=== PATIENT | male | born 1965 | race African-American/Black ===

== ENCOUNTER 2018-05-14 12:29 | Inpatient (IN) | payer OTHER ==
[2018-05-14 13:55] VITALS: BMI 24.3
--- NOTE | 2018-05-14 15:43 | HP ---
CIWA Score - Admission Criteria [facility] Guidelines: Admission for Medically Managed Detox: Requires at least one of the followin. CIWA greater than 12 2. Seizures within the past 24 hours 3. Delirium tremens within the past 24 hours 4. Hallucinations within the past 24 hours 5. Acute intervention needed for co occurring medical disorder 6. Acute intervention needed for co occurring psychiatric disorder 7. Severe withdrawal that cannot be handled at a lower level of care (continued vomiting, continued diarrhea, abnormal vital signs) requiring intravenous medication and/or fluids 8. Admission ROS S - HPI Chief Complaint: i am here for rehab from alcohol,cocaine,marijuana Allergies/Adverse Reactions: Allergies Allergy/AdvReac Type Severity Reaction Status Date / Time No Known Allergies Allergy Verified 05/14/18 13:50 History of Present Illness: this 52 years old male with alcohol,cocaine and marijuana dependence,seeking rehab,completed [facility] today, history of hypertension on medication nicotine dependence 30 cigarette ,will give nicotine patch and gum depression for rehab no significant period of sobriety - Ebola screening Have you traveled outside of the country in the last 21 days: No Have you had contact with anyone from an Ebola affected area: No - Review of Systems Constitutional: No Symptoms Reported EENT: reports: No Symptoms Reported Respiratory: reports: No Symptoms reported Cardiac: reports: No Symptoms Reported GI: reports: No Symptoms Reported : reports: No Symptoms Reported Musculoskeletal: reports: No Symptoms Reported, Other (fx of left ankle in 1990) Integumentary: reports: No Symptoms Reported Neuro: reports: No Symptoms reported Endocrine: reports: No Symptoms Reported Hematology: reports: No Symptoms Reported Psychiatric: reports: No Sypmtoms Reported, Judgement Intact, Mood/Affect Appropiate, Orientated x3 Patient History - Patient Medical History Hx Anemia: No Hx Asthma: Yes (on albutrol inhaler) Hx Chronic Obstructive Pulmonary Disease (COPD): No Hx Cancer: No Hx Cardiac Disorders: No Hx Congestive Heart Failure: No Hx Hypertension: Yes (on lisinopril 10 mgs po daily) Hx Hypercholesterolemia: No Hx Pacemaker: No HX Cerebrovascular Accident: No Hx Seizures: No Hx Dementia: No Hx Diabetes: No Hx Gastrointestinal Disorders: No Hx Liver Disease: No Hx Genitourinary Disorders: No Hx Sexually Transmitted Disorders: No Hx Renal Disease (ESRD): No Hx Thyroid Disease: No Hx Human Immunodeficiency Virus (HIV): No (hiv 2017 negative) Hx Hepatitis C: No Hx Depression: Yes (no medication) Hx Suicide Attempt: No Hx Bipolar Disorder: No Hx Schizophrenia: No Other Medical History: no suicidal,no homicidal - Patient Surgical History Hx Orthopedic Surgery: Yes (left ankle in 1990 ) - PPD History Previous Implant?: Yes Documented Results: Negative w/proof Implanted On Prior [facility] Admission?: No PPD to be Administered?: No - Smoking Cessation Smoking history: Current every day smoker Have you smoked in the past 12 months: Yes Aproximately how many cigarettes per day: 30 Cigars Per Day: 0 Hx Chewing Tobacco Use: No Initiated information on smoking cessation: Yes 'Breaking Loose' booklet given: 05/14/18 - Substance & Tx. History Hx Alcohol Use: Yes Hx Substance Use: Yes Substance Use Type: Alcohol, Cocaine, Marijuana Hx Substance Use Treatment: Yes ([facility] 05/11/18 to 05/14/18) - Substances abused Alcohol Substance route: Oral Frequency: Daily Amount used: 4 PINTS VODKA Age of first use: 10 Date of last use: 05/14/18 Marijuana/Hashish Substance route: Smoking Frequency: Daily Amount used: 3 BAGS Age of first use: 10 Date of last use: 05/14/18 Cocaine Substance route: Smoking Frequency: Daily Amount used: $50 Age of first use: 10 Date of last use: 05/14/18 Family Disease History - Family Disease History Family History: Denies Family Disease History: Other: Father (alcohol,), Mother (alcohol, ) Admission Physical Exam S - Vital Signs Vital Signs: Vital Signs - 24 hr 05/14/18 05/14/18 13:47 15:25 Temperature 97.0 F L 97.0 F L Pulse Rate 90 90 Respiratory 18 18 Rate Blood Pressure 143/81 143/81 - Physical General Appearance: Yes: Within Normal Limits HEENTM: Yes: Normal ENT Inspection, Normocephalic, VALENT[place], Pharynx Normal Respiratory: Yes: Lungs Clear, Normal Breath Sounds, No Respiratory Distress Neck: Yes: Within Normal Limits, Supple, Trachea in good position Breast: Yes: Within Normal Limits Cardiology: Yes: Within Normal Limits, Regular Rhythm, Regular Rate, S1, S2 Abdominal: Yes: Within Normal Limits, Normal Bowel Sounds, Non Tender, Flat, Soft Genitourinary: Yes: Within Normal Limits Back: Yes: Within Normal Limits Musculoskeletal: Yes: Within Normal Limits Extremities: Yes: Within Normal Limits, Normal Capillary Refill, Normal Inspection, Other (scar eft ankle) Neurological: Yes: tank cooper II-XII NML intact, Fully Oriented, Alert, Motor Strength 5/5 Integumentary: Yes: Dry Lymphatic: Yes: Within Normal Limits - Diagnostic (1) Alcohol dependence Current Visit: Yes Status: Acute (2) Cocaine dependence Current Visit: Yes Status: Acute (3) Cannabis dependence Current Visit: Yes Status: Acute (4) Ankle fracture, left Current Visit: Yes Status: Acute (5) Nicotine dependence Current Visit: Yes Status: Acute (6) Essential hypertension Current Visit: Yes Status: Acute (7) Asthma Current Visit: Yes Status: Acute Cleared for Admission [facility] - Detox or Rehab Claeared for Rehab Admission: Yes Breathalyzer - Breathalyzer Breathalyzer: 0 Urine Drug Screen - Test Device Lot number: [id number] Expiration date: 01/09/20 - Control Is test valid?: Yes - Results Drug screen NEGATIVE: No Urine drug screen results: THC-Marijuana, ERIC-Cocaine, BZO-Benzodiazepines Inpatient Rehab Admission - Rehab Decision to Admit Inpatient rehab admission?: Yes - Initial Determination Are CD services needed?: Yes Free of communicable disease: Yes Not in need of hospitalization: Yes - Rehab Admission Criteria Previous failed treatment: Yes Poor recovery environment: Yes Comorbidities: Yes Lacks judgement: No Patient is meeting Inpatient Rehab admission criteria:: Yes
[2018-05-14] MEDS ORDERED: hydrOXYzine PAMOATE 50 MG CAPSULE (FP) PO PRN (15:53)
[2018-05-14] MEDS ORDERED: MAGNESIUM CITRATE 300 ML BOTTLE PO PRN (15:53)
[2018-05-14] MEDS ORDERED: LOPERAMIDE HCL 2 MG CAPSULE PO PRN (15:53)
[2018-05-14] MEDS ORDERED: MAGNESIUM HYDROX 2400MG/30ML ORAL SUSPENSION 30 ML CUP PO PRN (15:53)
[2018-05-14] MEDS ORDERED: MAG HYDROX/AL HYDROX/SIMETH 30 ML UNIT-DOSE CUP PO PRN (15:53)
[2018-05-14] MEDS ORDERED: MENTHOL/PHENOL 1 EACH UD MM PRN (15:53)
[2018-05-14] MEDS: ACETAMINOPHEN 325 MG TABLET (FP) PO PRN (17:25)
[2018-05-14] MEDS: IBUPROFEN 400 MG TABLET (FP) PO PRN (17:25)
[2018-05-14] MEDS: NICOTINE 21 MG/24 HOURS TOPICAL PATCH TD SCH (17:29)
[2018-05-14] MEDS: MELATONIN 5 MG TABLETS PO PRN (22:11)
[2018-05-14] MEDS: THIAMINE HCL 100 MG TABLET (FP) PO SCH (22:11)
[2018-05-14 23:45] LABS: EPI CELLS 0.7 /HPF (0-5); URINE APPEARANCE CLEAR; URINE BACTERIA 0.3 /hpf (NEGATIVE); URINE BILIRUBIN NEGATIVE (NEGATIVE); URINE CASTS 5 /hpf (0-8); URINE COLOR DK YELLOW; URINE GLUCOSE (UA) NEGATIVE (NEGATIVE); URINE KETONE TRACE (NEGATIVE); URINE LEUK ESTERASE NEGATIVE (NEGATIVE); URINE NITRITE NEGATIVE (NEGATIVE); URINE PROTEIN 1+ (NEGATIVE); URINE RBC 4 /hpf (0-4); URINE UROBILINOGEN 0.2 mg/dL (0.2-1.0); URINE WBC 1 /hpf (0-5)
[2018-05-15] MEDS: P-EPHED 60MG/TRIPROLIDI 2.5MG TABLET PO PRN (06:47)
[2018-05-15] MEDS: guaiFENesin 200 MG/10 ML 10 ML UNIT-DOSE CUPS PO PRN ×2 (06:47→15:10)
[2018-05-15] MEDS: PRENATAL VITAMINS W/ FOLIC ACID TABLET (FP) PO SCH (10:02)
[2018-05-15] MEDS: LISINOPRIL 10 MG TABLET (FP) PO SCH (10:02)
[2018-05-15] MEDS: NICOTINE 21 MG/24 HOURS TOPICAL PATCH TD SCH (10:03)
[2018-05-15] MEDS: NICOTINE POLACRILEX 2 MG GUM BC PRN (10:03)
[2018-05-15 10:12] LABS: ALBUMIN 3.2 g/dl (3.4-5.0); ALK PHOS 88 U/L (45-117); ANION GAP 3 MMOL/L (8-16); BILIRUBIN,TOTAL 0.2 mg/dL (0.2-1); BLOOD UREA NITROGEN 22 mg/dL (7-18); CALCIUM 8.7 mg/dL (8.5-10.1); CHLORIDE 106 mmol/L (98-107); CO2 30 mmol/L (21-32); CREATININE 1.3 mg/dL (0.55-1.3); GLUCOSE,RANDOM 91 mg/dL (74-106); POTASSIUM 4.9 mmol/L (3.5-5.1); SGOT/AST 18 U/L (15-37); SGPT/ALT 27 U/L (13-61); SODIUM 140 mmol/L (136-145); TOT PROT 6.7 g/dl (6.4-8.2)
[2018-05-15 10:14] LABS: HEMATOCRIT 47.6 % (35.4-49); HEMOGLOBIN 15.6 GM/dL (11.7-16.9); MCH 32.3 pg (25.7-33.7); MCHC 32.7 g/dl (32.0-35.9); MEAN PLT VOLUME 8.7 fl (7.5-11.1); PLATELET COUNT 222 K/MM3 (134-434); RBC 4.81 M/mm3 (4.00-5.60); RDW 15.1 % (11.9-15.9); WHITE BLOOD COUNT 2.7 K/mm3 (4.0-10.0)
--- NOTE | 2018-05-15 11:37 | EKG ---
Test Reason : Blood Pressure : / mmHG Vent. Rate : 091 BPM Atrial Rate : 091 BPM P-R Int : 138 ms QRS Dur : 092 ms QT Int : 332 ms P-R-T Axes : 067 064 046 degrees QTc Int : 408 ms NORMAL SINUS RHYTHM CANNOT RULE OUT ANTERIOR INFARCT , AGE UNDETERMINED ABNORMAL ECG NO PREVIOUS ECGS AVAILABLE Confirmed by SLIME VASQUEZ MD ([id number]) on 05/15/2018 11:37:12 AM Referred By: Confirmed By:SLIME VASQUEZ MD
[2018-05-15] MEDS: IBUPROFEN 400 MG TABLET (FP) PO PRN (15:10)
[2018-05-15] MEDS: THIAMINE HCL 100 MG TABLET (FP) PO SCH (22:01)
[2018-05-15] MEDS: ACETAMINOPHEN 325 MG TABLET (FP) PO PRN (23:29)
[2018-05-16] MEDS: ACETAMINOPHEN 325 MG TABLET (FP) PO PRN ×3 (05:56→21:18)
[2018-05-16] MEDS: LISINOPRIL 10 MG TABLET (FP) PO SCH (09:51)
[2018-05-16] MEDS: PRENATAL VITAMINS W/ FOLIC ACID TABLET (FP) PO SCH (09:51)
[2018-05-16] MEDS: guaiFENesin 200 MG/10 ML 10 ML UNIT-DOSE CUPS PO PRN ×2 (09:51→21:17)
[2018-05-16] MEDS: NICOTINE 21 MG/24 HOURS TOPICAL PATCH TD SCH (09:52)
[2018-05-16] MEDS: NICOTINE POLACRILEX 2 MG GUM BC PRN (09:52)
[2018-05-16] MEDS: IBUPROFEN 400 MG TABLET (FP) PO PRN (16:33)
[2018-05-16] MEDS: MELATONIN 5 MG TABLETS PO PRN (21:16)
[2018-05-16] MEDS: THIAMINE HCL 100 MG TABLET (FP) PO SCH (21:16)
[2018-05-17] MEDS: NICOTINE POLACRILEX 2 MG GUM BC PRN (06:25)
[2018-05-17] MEDS: PRENATAL VITAMINS W/ FOLIC ACID TABLET (FP) PO SCH (10:20)
[2018-05-17] MEDS: LISINOPRIL 10 MG TABLET (FP) PO SCH (10:20)
[2018-05-17] MEDS: ACETAMINOPHEN 325 MG TABLET (FP) PO PRN ×2 (10:21→21:18)
[2018-05-17] MEDS: NICOTINE 21 MG/24 HOURS TOPICAL PATCH TD SCH (10:22)
--- NOTE | 2018-05-17 11:22 | PN ---
[facility] Progress Note Note: PT C/P PERSISTENT COUGH/ NASAL CONGESTION AND SEVERE TOOTH ACHE "HITTING ON THE NERVE". DENIES SORE THROAT. PT REPORTS HIS DOCTOR CHANGED HIS LISINOPRIL SOMETIME AGO AND TAKES ANOTHER AND WILL CALL HOME TO HIS SISTER TO CONFIRM. Vital Signs - 24 hr 05/17/18 05/17/18 05/17/18 00:30 03:30 06:36 Temperature 97.8 F Pulse Rate 71 Respiratory 18 18 18 Rate Blood Pressure 141/95 Laboratory Tests 05/14/18 05/15/18 05/15/18 21:37 07:45 07:45 WBC 2.7 L RBC 4.81 Hgb 15.6 Hct 47.6 MCV 99.0 H MCH 32.3 MCHC 32.7 RDW 15.1 Plt Count 222 MPV 8.7 Sodium 140 Potassium 4.9 Chloride 106 Carbon Dioxide 30 Anion Gap 3 L BUN 22 H Creatinine 1.3 Creat Clearance w eGFR 57.53 Random Glucose 91 Calcium 8.7 Total Bilirubin 0.2 AST 18 ALT 27 Alkaline Phosphatase 88 Total Protein 6.7 Albumin 3.2 L Urine Color Dk yellow Urine Appearance Clear Urine pH 5.0 Ur Specific [place] 1.034 Urine Protein 1+ H Urine Glucose (UA) Negative Urine Ketones Trace H Urine Blood Negative Urine Nitrite Negative Urine Bilirubin Negative Urine Urobilinogen 0.2 Ur Leukocyte Esterase Negative Urine WBC (Auto) 1 Urine RBC (Auto) 4 Urine Casts (Auto) 5 U Epithel Cells (Auto) 0.7 Urine Bacteria (Auto) 0.3 RPR Titer HIV 1&2 Antibody Screen HIV P24 Antigen 05/15/18 05/15/18 07:45 07:45 WBC RBC Hgb Hct MCV MCH MCHC RDW Plt Count MPV Sodium Potassium Chloride Carbon Dioxide Anion Gap BUN Creatinine Creat Clearance w eGFR Random Glucose Calcium Total Bilirubin AST ALT Alkaline Phosphatase Total Protein Albumin Urine Color Urine Appearance Urine pH Ur Specific [place] Urine Protein Urine Glucose (UA) Urine Ketones Urine Blood Urine Nitrite Urine Bilirubin Urine Urobilinogen Ur Leukocyte Esterase Urine WBC (Auto) Urine RBC (Auto) Urine Casts (Auto) U Epithel Cells (Auto) Urine Bacteria (Auto) RPR Titer Nonreactive HIV 1&2 Antibody Screen Negative HIV P24 Antigen Negative CARDIAC:S1 S2, RRR LUNGS:CLEAR TO AUSCULTATE ORAL EXAM:TOOTH FILLINGS MULTIPLE SITES; NO REDNESS OR SWELLING. A: S/P TOOTH DECAY PLAN:IBUPROFEN 600 MG PRN DIRECTED. PERIDEX MOUTH RINSE DIRECTED AMLODIPINE 5 MG PO DAILY(PT CONFIRMED FROM HOME HE IS ON THIS MEDICATION). WILL D/C LISINOPRIL AND RESTART AMLODIPINE)
[2018-05-17] MEDS: CHLORHEXIDINE GLUCONATE 118 ML MOUTHWASH MM SCH ×2 (15:26→21:15)
[2018-05-17] MEDS: IBUPROFEN 600 MG TABLET (FP) PO PRN (15:27)
[2018-05-17] MEDS: THIAMINE HCL 100 MG TABLET (FP) PO SCH (21:18)
[2018-05-17] MEDS: MELATONIN 5 MG TABLETS PO PRN (21:19)
[2018-05-18] MEDS: IBUPROFEN 600 MG TABLET (FP) PO PRN ×2 (05:00→21:14)
[2018-05-18] MEDS: P-EPHED 60MG/TRIPROLIDI 2.5MG TABLET PO PRN ×2 (06:28→21:15)
[2018-05-18] MEDS: guaiFENesin 200 MG/10 ML 10 ML UNIT-DOSE CUPS PO PRN (06:29)
[2018-05-18] MEDS: LISINOPRIL 10 MG TABLET (FP) PO SCH (10:00)
[2018-05-18] MEDS: PRENATAL VITAMINS W/ FOLIC ACID TABLET (FP) PO SCH (10:00)
[2018-05-18] MEDS: NICOTINE 21 MG/24 HOURS TOPICAL PATCH TD SCH (10:00)
[2018-05-18] MEDS: CHLORHEXIDINE GLUCONATE 118 ML MOUTHWASH MM SCH ×2 (10:01→21:15)
[2018-05-18] MEDS: NICOTINE POLACRILEX 2 MG GUM BC PRN (10:43)
[2018-05-18] MEDS: ACETAMINOPHEN 325 MG TABLET (FP) PO PRN (17:38)
[2018-05-18] MEDS: MELATONIN 5 MG TABLETS PO PRN (21:12)
[2018-05-18] MEDS: THIAMINE HCL 100 MG TABLET (FP) PO SCH (21:12)
[2018-05-19] MEDS: P-EPHED 60MG/TRIPROLIDI 2.5MG TABLET PO PRN ×2 (06:26→21:12)
[2018-05-19] MEDS: IBUPROFEN 600 MG TABLET (FP) PO PRN ×2 (06:26→21:12)
[2018-05-19] MEDS: NICOTINE POLACRILEX 2 MG GUM BC PRN ×2 (06:27→20:11)
[2018-05-19] MEDS: CHLORHEXIDINE GLUCONATE 118 ML MOUTHWASH MM SCH ×2 (09:55→21:13)
[2018-05-19] MEDS: NICOTINE 21 MG/24 HOURS TOPICAL PATCH TD SCH (09:55)
[2018-05-19] MEDS: PRENATAL VITAMINS W/ FOLIC ACID TABLET (FP) PO SCH (09:55)
[2018-05-19] MEDS ORDERED: amLODIPine BESYLATE 5 MG TABLET (FP) PO SCH ×2 (10:00→11:54)
[2018-05-19] MEDS ORDERED: cloNIDine HCL 0.1 MG TABLET PO ONE (12:40)
[2018-05-19] MEDS ORDERED: ALBUTEROL SO4 8 GM HFA INHALER IH PRN (15:51)
[2018-05-19] MEDS: THIAMINE HCL 100 MG TABLET (FP) PO SCH (21:11)
[2018-05-19] MEDS: MELATONIN 5 MG TABLETS PO PRN (21:12)
[2018-05-20] MEDS: P-EPHED 60MG/TRIPROLIDI 2.5MG TABLET PO PRN ×2 (06:05→21:14)
[2018-05-20] MEDS: IBUPROFEN 600 MG TABLET (FP) PO PRN ×2 (06:06→21:14)
[2018-05-20] MEDS: NICOTINE POLACRILEX 2 MG GUM BC PRN ×3 (06:06→19:00)
[2018-05-20] MEDS: PRENATAL VITAMINS W/ FOLIC ACID TABLET (FP) PO SCH (10:38)
[2018-05-20] MEDS: amLODIPine BESYLATE 10 MG TABLET (FP) PO SCH (10:39)
[2018-05-20] MEDS: CHLORHEXIDINE GLUCONATE 118 ML MOUTHWASH MM SCH ×2 (10:41→21:15)
[2018-05-20] MEDS: NICOTINE 21 MG/24 HOURS TOPICAL PATCH TD SCH (10:42)
[2018-05-20] MEDS: THIAMINE HCL 100 MG TABLET (FP) PO SCH (21:13)
[2018-05-20] MEDS: MELATONIN 5 MG TABLETS PO PRN (21:14)
[2018-05-21] MEDS: IBUPROFEN 600 MG TABLET (FP) PO PRN ×2 (06:32→21:19)
[2018-05-21] MEDS: P-EPHED 60MG/TRIPROLIDI 2.5MG TABLET PO PRN ×2 (06:33→21:19)
[2018-05-21] MEDS: NICOTINE POLACRILEX 2 MG GUM BC PRN ×2 (06:33→21:20)
[2018-05-21] MEDS: amLODIPine BESYLATE 10 MG TABLET (FP) PO SCH (10:18)
[2018-05-21] MEDS: PRENATAL VITAMINS W/ FOLIC ACID TABLET (FP) PO SCH (10:18)
[2018-05-21] MEDS: CHLORHEXIDINE GLUCONATE 118 ML MOUTHWASH MM SCH ×2 (10:19→21:17)
[2018-05-21] MEDS: NICOTINE 21 MG/24 HOURS TOPICAL PATCH TD SCH (10:19)
[2018-05-21] MEDS: THIAMINE HCL 100 MG TABLET (FP) PO SCH (21:19)
[2018-05-22] MEDS: IBUPROFEN 600 MG TABLET (FP) PO PRN ×2 (06:11→21:10)
[2018-05-22] MEDS: P-EPHED 60MG/TRIPROLIDI 2.5MG TABLET PO PRN ×2 (06:11→21:09)
[2018-05-22] MEDS: NICOTINE POLACRILEX 2 MG GUM BC PRN ×4 (06:13→23:32)
[2018-05-22] MEDS: NICOTINE 21 MG/24 HOURS TOPICAL PATCH TD SCH (09:47)
[2018-05-22] MEDS: PRENATAL VITAMINS W/ FOLIC ACID TABLET (FP) PO SCH (09:47)
[2018-05-22] MEDS: CHLORHEXIDINE GLUCONATE 118 ML MOUTHWASH MM SCH ×2 (09:47→21:12)
[2018-05-22] MEDS: amLODIPine BESYLATE 10 MG TABLET (FP) PO SCH (09:47)
[2018-05-22] MEDS: MELATONIN 5 MG TABLETS PO PRN (21:09)
[2018-05-22] MEDS: THIAMINE HCL 100 MG TABLET (FP) PO SCH (21:11)
[2018-05-23] MEDS: P-EPHED 60MG/TRIPROLIDI 2.5MG TABLET PO PRN (06:23)
[2018-05-23] MEDS: IBUPROFEN 600 MG TABLET (FP) PO PRN ×2 (06:23→21:11)
[2018-05-23] MEDS: NICOTINE POLACRILEX 2 MG GUM BC PRN ×3 (06:24→13:05)
[2018-05-23] MEDS: NICOTINE 21 MG/24 HOURS TOPICAL PATCH TD SCH (10:09)
[2018-05-23] MEDS: CHLORHEXIDINE GLUCONATE 118 ML MOUTHWASH MM SCH ×2 (10:09→21:13)
[2018-05-23] MEDS: amLODIPine BESYLATE 10 MG TABLET (FP) PO SCH (10:09)
[2018-05-23] MEDS: PRENATAL VITAMINS W/ FOLIC ACID TABLET (FP) PO SCH (10:09)
[2018-05-23] MEDS: THIAMINE HCL 100 MG TABLET (FP) PO SCH (21:11)
[2018-05-23] MEDS: MELATONIN 5 MG TABLETS PO PRN (21:11)
[2018-05-24] MEDS: P-EPHED 60MG/TRIPROLIDI 2.5MG TABLET PO PRN ×2 (06:18→21:17)
[2018-05-24] MEDS: IBUPROFEN 600 MG TABLET (FP) PO PRN ×2 (06:18→21:17)
[2018-05-24] MEDS: NICOTINE POLACRILEX 2 MG GUM BC PRN ×3 (06:20→21:18)
[2018-05-24] MEDS: CHLORHEXIDINE GLUCONATE 118 ML MOUTHWASH MM SCH ×2 (09:54→21:15)
[2018-05-24] MEDS: amLODIPine BESYLATE 10 MG TABLET (FP) PO SCH (09:54)
[2018-05-24] MEDS: PRENATAL VITAMINS W/ FOLIC ACID TABLET (FP) PO SCH (09:54)
[2018-05-24] MEDS: NICOTINE 21 MG/24 HOURS TOPICAL PATCH TD SCH (09:54)
[2018-05-24] MEDS: MELATONIN 5 MG TABLETS PO PRN (21:14)
[2018-05-24] MEDS: THIAMINE HCL 100 MG TABLET (FP) PO SCH (21:14)
[2018-05-25] MEDS: ACETAMINOPHEN 325 MG TABLET (FP) PO PRN (03:21)
[2018-05-25] MEDS: IBUPROFEN 600 MG TABLET (FP) PO PRN ×2 (06:15→21:22)
[2018-05-25] MEDS: NICOTINE POLACRILEX 2 MG GUM BC PRN ×4 (06:16→20:45)
[2018-05-25] MEDS: PRENATAL VITAMINS W/ FOLIC ACID TABLET (FP) PO SCH (10:10)
[2018-05-25] MEDS: CHLORHEXIDINE GLUCONATE 118 ML MOUTHWASH MM SCH ×2 (10:10→21:21)
[2018-05-25] MEDS: NICOTINE 21 MG/24 HOURS TOPICAL PATCH TD SCH (10:10)
[2018-05-25] MEDS: amLODIPine BESYLATE 10 MG TABLET (FP) PO SCH (10:10)
[2018-05-25] MEDS: P-EPHED 60MG/TRIPROLIDI 2.5MG TABLET PO PRN ×2 (10:11→21:20)
[2018-05-25] MEDS: THIAMINE HCL 100 MG TABLET (FP) PO SCH (21:20)
[2018-05-25] MEDS: MELATONIN 5 MG TABLETS PO PRN (21:21)
[2018-05-26] MEDS: IBUPROFEN 600 MG TABLET (FP) PO PRN (06:49)
[2018-05-26] MEDS: NICOTINE POLACRILEX 2 MG GUM BC PRN ×3 (06:49→21:09)
[2018-05-26] MEDS: P-EPHED 60MG/TRIPROLIDI 2.5MG TABLET PO PRN ×2 (06:49→21:08)
[2018-05-26] MEDS: CHLORHEXIDINE GLUCONATE 118 ML MOUTHWASH MM SCH ×2 (10:07→21:08)
[2018-05-26] MEDS: NICOTINE 21 MG/24 HOURS TOPICAL PATCH TD SCH (10:07)
[2018-05-26] MEDS: amLODIPine BESYLATE 10 MG TABLET (FP) PO SCH (10:07)
[2018-05-26] MEDS: PRENATAL VITAMINS W/ FOLIC ACID TABLET (FP) PO SCH (10:07)
[2018-05-26] MEDS: THIAMINE HCL 100 MG TABLET (FP) PO SCH (21:08)
[2018-05-26] MEDS: MELATONIN 5 MG TABLETS PO PRN (21:08)
[2018-05-27] MEDS: P-EPHED 60MG/TRIPROLIDI 2.5MG TABLET PO PRN ×2 (06:23→21:16)
[2018-05-27] MEDS: IBUPROFEN 600 MG TABLET (FP) PO PRN ×2 (06:24→21:19)
[2018-05-27] MEDS: NICOTINE POLACRILEX 2 MG GUM BC PRN ×2 (10:49→20:45)
[2018-05-27] MEDS: amLODIPine BESYLATE 10 MG TABLET (FP) PO SCH (10:49)
[2018-05-27] MEDS: PRENATAL VITAMINS W/ FOLIC ACID TABLET (FP) PO SCH (10:49)
[2018-05-27] MEDS: CHLORHEXIDINE GLUCONATE 118 ML MOUTHWASH MM SCH ×2 (10:49→21:16)
[2018-05-27] MEDS: NICOTINE 21 MG/24 HOURS TOPICAL PATCH TD SCH (10:49)
[2018-05-27] MEDS: THIAMINE HCL 100 MG TABLET (FP) PO SCH (21:16)
[2018-05-27] MEDS: MELATONIN 5 MG TABLETS PO PRN (21:17)
[2018-05-28] MEDS: P-EPHED 60MG/TRIPROLIDI 2.5MG TABLET PO PRN (06:07)
[2018-05-28] MEDS: NICOTINE POLACRILEX 2 MG GUM BC PRN (06:07)
[2018-05-28] MEDS: IBUPROFEN 600 MG TABLET (FP) PO PRN (06:07)
[2018-05-28 06:39] VITALS: TEMP 97.9
[2018-05-28] MEDS: amLODIPine BESYLATE 10 MG TABLET (FP) PO SCH (09:43)
[2018-05-28] MEDS: PRENATAL VITAMINS W/ FOLIC ACID TABLET (FP) PO SCH (09:43)
[2018-05-28] MEDS: NICOTINE 21 MG/24 HOURS TOPICAL PATCH TD SCH (09:43)
[2018-05-28] MEDS: CHLORHEXIDINE GLUCONATE 118 ML MOUTHWASH MM SCH (09:43)
[2018-05-28 10:56] VITALS: BP 144/85; PULSE 90
--- NOTE | 2018-05-28 11:35 | PN ---
[facility] Progress Note Note: PT COMPLETE REHAB TODAY AND DISCHARGED. PT HAS BEEN REFERRED TO [facility] ON [address], [place]. PT REPORTS HE HAS A PCP, DR. ELY MASON AT [facility]. PT IS ALERT O X 3. COURTESY RX BELOW ELECTRONICALLY SENT TO [facility] FOR LIQUID [employer]. Home Medications Medication Instructions Recorded Amlodipine Besylate 5 mg PO DAILY 05/17/18 Albuterol Sulfate Inhaler - 2 puff IH Q4H 30 Days #1 inhaler 05/27/18 [Ventolin HFA Inhaler -] Amlodipine Besylate [Norvasc -] 10 mg PO DAILY #30 tablet 05/27/18 Vital Signs - 24 hr 05/28/18 05/28/18 05/28/18 00:30 03:30 06:38 Temperature 97.9 F Pulse Rate 75 Respiratory 18 18 18 Rate Blood Pressure 148/99 05/28/18 10:00 Temperature Pulse Rate 90 Respiratory 18 Rate Blood Pressure 144/85 Laboratory Tests 05/14/18 05/15/18 05/15/18 21:37 07:45 07:45 WBC 2.7 L RBC 4.81 Hgb 15.6 Hct 47.6 MCV 99.0 H MCH 32.3 MCHC 32.7 RDW 15.1 Plt Count 222 MPV 8.7 Sodium 140 Potassium 4.9 Chloride 106 Carbon Dioxide 30 Anion Gap 3 L BUN 22 H Creatinine 1.3 Creat Clearance w eGFR 57.53 Random Glucose 91 Calcium 8.7 Total Bilirubin 0.2 AST 18 ALT 27 Alkaline Phosphatase 88 Total Protein 6.7 Albumin 3.2 L Urine Color Dk yellow Urine Appearance Clear Urine pH 5.0 Ur Specific [place] 1.034 Urine Protein 1+ H Urine Glucose (UA) Negative Urine Ketones Trace H Urine Blood Negative Urine Nitrite Negative Urine Bilirubin Negative Urine Urobilinogen 0.2 Ur Leukocyte Esterase Negative Urine WBC (Auto) 1 Urine RBC (Auto) 4 Urine Casts (Auto) 5 U Epithel Cells (Auto) 0.7 Urine Bacteria (Auto) 0.3 RPR Titer HIV 1&2 Antibody Screen HIV P24 Antigen 05/15/18 05/15/18 07:45 07:45 WBC RBC Hgb Hct MCV MCH MCHC RDW Plt Count MPV Sodium Potassium Chloride Carbon Dioxide Anion Gap BUN Creatinine Creat Clearance w eGFR Random Glucose Calcium Total Bilirubin AST ALT Alkaline Phosphatase Total Protein Albumin Urine Color Urine Appearance Urine pH Ur Specific [place] Urine Protein Urine Glucose (UA) Urine Ketones Urine Blood Urine Nitrite Urine Bilirubin Urine Urobilinogen Ur Leukocyte Esterase Urine WBC (Auto) Urine RBC (Auto) Urine Casts (Auto) U Epithel Cells (Auto) Urine Bacteria (Auto) RPR Titer Nonreactive HIV 1&2 Antibody Screen Negative HIV P24 Antigen Negative NAD MEDICALLY STABLE PLAN:FOLLOW UP WITH CD AND MEDICAL MANAGEMENT RECOMMENDATIONS PLANNED.
== END 2018-05-28 10:35 | disposition home or self-care (01) | DRG 772 ==
LOC: YASAS 12:29 → Y5N 16:00
PROVIDERS: ADMIT Neuromusculoskeletal Medicine & OMM; ATTEND Neuromusculoskeletal Medicine & OMM
PROC: HZ42ZZZ Group Counseling for Substance Abuse Treatment, Cognitive-Behavioral (ICD-10-PCS; principal; 2018-05-14)
DX: F10.20 Alcohol dependence, uncomplicated (principal); F14.20 Cocaine dependence, uncomplicated; F12.20 Cannabis dependence, uncomplicated; F17.210 Nicotine dependence, cigarettes, uncomplicated; I10 Essential (primary) hypertension; J45.909 Unspecified asthma, uncomplicated; K08.9 Disorder of teeth and supporting structures, unspecified; K02.9 Dental caries, unspecified
CPT/HCPCS: 36415; 80053; 81003; 85027; 86593; 87389; 93005; 93010; J0735